=== PATIENT | female | born 1955 | race Asian ===

== ENCOUNTER 2018-10-07 02:36 | Emergency (ER) | payer BC ==
[~2018-10-07] VITALS: Ht 157.5 cm; Wt 52.2 kg
[~2018-10-07 02:36] MED LIST: ATEN-166 PO; PRO40 PO
[2018-10-07 02:40] VITALS: BP_SYST 181
[2018-10-07 05:20] VITALS: BP_SYST 136
== END 2018-10-07 05:20 | disposition left against medical advice (07) ==
LOC: SED 02:36
DX: G44.209 Tension-type headache, unspecified, not intractable (principal); M54.2 Cervicalgia; I10 Essential (primary) hypertension; Z79.899 Other long term (current) drug therapy
CPT/HCPCS: 70450-TC; 72125-TC; 99284

== ENCOUNTER 2019-07-10 07:50 | Emergency (ER) | payer BC, OTHER ==
[~2019-07-10] VITALS: Ht 157.5 cm; Wt 51.3 kg
[2019-07-10 08:23] VITALS: BP_SYST 215
--- NOTE | 2019-07-10 08:55 | NUR ---
Patient to ER bed 2 to gown for evaluation. Side rails up.
--- NOTE | 2019-07-10 08:59 | NUR ---
Patient is awake, alert, and oriented x4. Patient states she was hypertensive this morning with dizziness, nausea, vomiting, stiff neck. Patient presents with pain neck pain and headache.
--- NOTE | 2019-07-10 09:10 | NUR ---
ER Dr. Sanabria at bedside examining patient.
[2019-07-10] MEDS ORDERED: ONDANSETRON 4 MG ODT TAB PO ONE (09:15)
[2019-07-10 09:28] LABS: BASOPHILS % (AUTO) 0.7 % (0.0-2.0); EOSINOPHILS % (AUTO) 0.6 % (0.0-4.0); HEMATOCRIT 44.4 % (36-48); HEMOGLOBIN 14.7 g/dL (12.0-16.0); LYMPHOCYTES # (AUTO) 0.9 K/uL (1.0-5.5); LYMPHOCYTES % (AUTO) 15.5 % (20.5-51.5); MEAN CORPUSCULAR HEMOGLOBIN 30 pg (27-31); MEAN CORPUSCULAR HGB CONC 33 % (32-36); MEAN CORPUSCULAR VOLUME 91 fL (79.0-98.0); MONOCYTES # (AUTO) 0.2 K/uL (0.0-1.0); MONOCYTES % (AUTO) 3.4 % (1.7-9.3); NEUTROPHILS # (AUTO) 4.8 K/uL (1.8-7.7); NEUTROPHILS % (AUTO) 79.8 % (40.0-70.0); PLATELET COUNT (AUTO) 270 K/uL (130-430); RED BLOOD CELL COUNT(AUTO) 4.88 MIL/uL (4.2-6.2); RED CELL DISTRIBUTION WIDTH 13.8 % (9.0-15.0); WHITE BLOOD COUNT (AUTO) 6.1 K/uL (4.8-10.8)
[2019-07-10] MEDS ORDERED: LORazepam 2 MG/ML VIAL IVP ONE (09:30)
[2019-07-10] MEDS ORDERED: ONDANSETRON HCL 4 MG/2 ML VIAL IVP ONE (09:30)
[2019-07-10 09:41] LABS: CALCIUM 10.7 mg/dL (8.4-11.0); CREATININE 0.53 mg/dL (0.55-1.30); POTASSIUM 3.5 mmol/L (3.5-5.1)
[2019-07-10 09:43] LABS: PROTHROMBIN TIME 9.8 SECS (9.5-12.5)
[2019-07-10 09:48] LABS: ALBUMIN 4.1 g/dL (3.4-4.8); TOTAL BILIRUBIN 0.9 mg/dL (0.0-1.0)
--- NOTE | 2019-07-10 09:54 | NUR ---
Patient transported to radiology via gurney, accompanied by lab support technician.
--- NOTE | 2019-07-10 10:08 | NUR ---
Returned from radiology, back to [facility].
[2019-07-10] MEDS ORDERED: DIPHENHYDRAMINE INJ 50 MG/ML VIAL IVP ONE ×2 (10:45)
[2019-07-10] MEDS ORDERED: MECLIZINE HCL 25 MG TABLET (ANITVERT) PO ONE (10:45)
[2019-07-10 11:19] VITALS: BP_SYST 143
--- NOTE | 2019-07-10 11:27 | NUR ---
Patient given written and verbal discharge instructions and verbalizes understanding. ER MD discussed with patient the results and treatment provided. Patient in stable condition. ID arm band removed. IV catheter removed intact and dressing applied, no active bleeding. Rx of antivert given. Patient educated on pain management and to follow up with PMD. Pain Scale 0/10. Opportunity for questions provided and answered. Medication side effect fact sheet provided.
== END 2019-07-10 11:19 | disposition home or self-care (01) ==
LOC: SED 07:50
DX: R42 Dizziness and giddiness (principal); I10 Essential (primary) hypertension; Z79.899 Other long term (current) drug therapy; Z87.11 Personal history of peptic ulcer disease
CPT/HCPCS: 36415; 70450; 80053; 83880; 84484; 85025; 85610; 93005; 96374; 96375; 99284; J1200; J2060; J2405; J8597; Q0162